=== PATIENT | male | born 1990 | race Caucasian/White ===

== ENCOUNTER 2022-07-17 21:15 | Emergency (ER) | payer OTHER ==
[2022-07-17] MEDS ORDERED: ZOFRAN ODT 4 MG PO ONE (21:22)
[2022-07-17] MEDS ORDERED: MORPHINE SULFATE 4 MG INJ IV ONE (21:22)
[2022-07-17] MEDS ORDERED: Adacel Vial IM ONE ×2 (21:22→21:54)
[2022-07-17] MEDS ORDERED: Sodium Chloride 0.9% 1000 ML 1,000 ML IV STA ×2 (21:22→22:15)
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
[2022-07-17 21:36] LABS: Hematocrit 50.9 % (42-50); Hemoglobin 17.7 g/dL (12.5-18.0); Mean Cell Volume 88.4 fL (78-100); Mean Corpuscular Hemoglobin 30.7 pg (26-32); Mean Corpuscular Hgb Concent. 34.8 g/dL (32-36); Mean Platelet Volume 9.9 fL (7.5-11.0); Platelet Count 473 x10^3/uL (150-450); Red Blood Count 5.76 x10^6/uL (4.1-5.6); Red Cell Distribution Width 12.1 % (11.5-14.0)
[2022-07-17 21:43] LABS: White Blood Count 34.1 x10^3/uL (4.0-10.5)
[2022-07-17 21:44] LABS: Bacteria FEW /HPF (NEGATIVE); Mucus SLIGHT /HPF (NEGATIVE)
[2022-07-17] MEDS ORDERED: ROCEPHIN 1 Gm-D5w 50 ml Bag** 1 G/50 ML IVPB IV STA (21:46)
[2022-07-17] MEDS ORDERED: Hydromorphone 1 mg/ml Injection IV ONE ×2 (21:47→23:35)
[2022-07-17 21:48] LABS: Appearance CLEAR (CLEAR)
[2022-07-17] MEDS ORDERED: Hydromorphone 1 mg/ml Injection ONE ×2 (21:48→23:40)
[2022-07-17 21:49] LABS: ALBUMIN 5.2 g/dL (3.5-5.0); ALKALINE PHOSPHATASE 94 U/L (38-126); AMYLASE 75 U/L (30-110); ANION GAP 22.2 MEQ/L (5-15); BLOOD UREA NITROGEN 16 mg/dL (9-20); CHLORIDE 100 mmol/L (98-107); Calcium 9.6 mg/dL (8.4-10.2); Carbon Dioxide 20 mmol/L (22-30); Creatinine 1 1.26 mg/dL (0.66-1.25); EST GLOMERULAR FILTRATION RATE > 60.0 ML/MIN; ETHYL ALCOHOL < 10 mg/dL (0-10); Glucose 180 mg/dL (74-106); LIPASE 296 U/L (23-300); Potassium 3.1 mmol/L (3.5-5.1); SGOT/AST 39 U/L (17-59); SODIUM 140 mmol/L (137-145); Total Protein 7.8 g/dL (6.3-8.2)
[2022-07-17 21:49] LABS: Bilirubin NEGATIVE (NEGATIVE); Dipstick done @ ? MAIN LAB; Glucose NEGATIVE (NEGATIVE); Ketones TRACE (NEGATIVE); Nitrite NEGATIVE (NEGATIVE); Ph 6.5 (5-6); Protein,Urine Dip NEGATIVE (Negative); RBC TRACE-INTACT Ery/ul (0-5); Specific Gravity 1.025 (1.005-1.025); Urobilinogen 0.2 mg/dL (0-1)
[2022-07-17 21:51] LABS: Urine Cultured Indicated? YES
[2022-07-17] MEDS ORDERED: ROCEPHIN 1 Gm-D5w 50 ml Bag** 1 G/50 ML IVPB IV ONE (21:53)
[2022-07-17 21:54] LABS: Amphetamine,Urine NEGATIVE (NEGATIVE); Barbiturate,Urine NEGATIVE (NEGATIVE); Benzodiazepine,Urine NEGATIVE (NEGATIVE); Cocaine,Urine NEGATIVE (NEGATIVE); Methadone,Urine NEGATIVE (NEGATIVE); Opiate,Urine NEGATIVE (NEGATIVE); PCP,Urine NEGATIVE (NEGATIVE); THC,Urine POSITIVE (NEGATIVE)
[2022-07-17 21:56] LABS: SGPT/ALT 32 U/L (0-50)
[2022-07-17 22:39] LABS: BAND 2 % (0.0-2.0); Lymphocytes 16 % (24-44); Monocyte 4 % (0.0-12.0); Nucleated Red Blood Cell 1 %; Platelet Estimate INCREASED (NORMAL); Total Cells Counted 100
[2022-07-17] MEDS ORDERED: Sodium Chloride 0.9% 1000 ML 1,000 ML ONE (22:42)
[2022-07-17] MEDS ORDERED: Norflex 60 MG/2 ML IV ONE (22:51)
[2022-07-17] MEDS ORDERED: Norflex 60 MG/2 ML ONE (22:52)
[2022-07-17] MEDS ORDERED: BACIGUENT 30 GM TP ONE (23:37)
[2022-07-17] MEDS ORDERED: BACIGUENT PACKET ONE (23:41)
[2022-07-18] MEDS ORDERED: Klor Con PO ONE ×2 (00:10→00:57)
[2022-07-18] MEDS ORDERED: MORPHINE SULFATE 4 MG INJ IV ONE (00:52)
[2022-07-18] MEDS ORDERED: MORPHINE SULFATE 4 MG INJ ONE (00:52)
[2022-07-18 01:05] VITALS: BP 140/78; PULSE 73; O2SAT 100
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
[2022-07-18] MEDS ORDERED: BACIGUENT 30 GM TP ONE (23:43)
== END 2022-07-18 01:18 | disposition short-term general hospital (02) ==
LOC: ED 21:15
DX: S82.102B Unspecified fracture of upper end of left tibia, initial encounter for open fracture type I or II (principal); S52.001B Unspecified fracture of upper end of right ulna, initial encounter for open fracture type I or II; S30.810A Abrasion of lower back and pelvis, initial encounter; S20.412A Abrasion of left back wall of thorax, initial encounter; S20.411A Abrasion of right back wall of thorax, initial encounter; V28.4XXA Motorcycle driver injured in noncollision transport accident in traffic accident, initial encounter; E87.6 Hypokalemia; M25.511 Pain in right shoulder; M25.531 Pain in right wrist; M79.651 Pain in right thigh; M25.561 Pain in right knee; M25.562 Pain in left knee; M25.571 Pain in right ankle and joints of right foot
CPT/HCPCS: 36000; 36415; 70450; 71250; 72125; 72128; 72131; 73030; 73080; 73552; 73560; 73610; 74176; 80053; 80307; 81015; 82150; 83690; 85025; 87086; 90471; 90715; 93005; 96360; 96361; 96365; 96374; 96375; 96376; 99285; 99291; J0696; J1170; J2270; J2360; Q0162; A9270-GY; G0480

== ENCOUNTER 2023-12-07 10:55 | Emergency (ER) | payer OTHER ==
[2023-12-07 11:15] VITALS: RESP 14; TEMP 98
[2023-12-07] MEDS ORDERED: TORAdol 30 mg Injection IM ONE (11:40)
[2023-12-07] MEDS ORDERED: DECADRON 10MG INJ. IM ONE (11:40)
[2023-12-07] MEDS ORDERED: DECADRON 10MG INJ. ONE (11:42)
[2023-12-07] MEDS ORDERED: TORAdol 30 mg Injection ONE (11:42)
--- NOTE | 2023-12-07 11:44 | ERPHSYRPT ---
- History of Present Illness Time Seen by Provider: 12/07/23 11:10 Source: patient Exam Limitations: no limitations Patient Subjective Stated Complaint: pt states that he began to have pain in his left shoulder Triage Nursing Assessment: pt ambulated into the er; pt is axo x4; c/o left shoulder pain; pt states 6/10 pain to left shoulder; swelling present to left posterior shoulder; limited ROM to left shoulder; no bruising present to left shoulder; strong left radial pulses; pt denies fall or injury to left shoulder; skin PDW; no respiratory distress present; vitals wnl Physician History: Patient is a 33-year-old male presents to our ED with left shoulder pain x 2 days. Patient had the same pain a couple years back. The pain resolved but has not reoccurred. No associated trauma. 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 Patient does a lot of overhead work activities. No fever. Patient has tenderness to the left rhomboid and left upper trapezius governing the left shoulder. No pain specifically at the left GH joint. No signs of trauma no bruising no swelling. RN reports following however this is not appreciated on my exam. Involved extremities neurovascular tact distally. Compartments are soft cap refill less than 2 seconds. Overlying soft tissue intact. No associated symptomology patient is otherwise healthy. He voices no other complaints or concerns at this time. Portions of this note were created with voice recognition technology. There may be grammatical, spelling, punctuation or sound alike errors Occurred: days ago (2 days ago) Method of Injury: unknown Quality: intermittent Severity of Pain-Max: moderate Severity of Pain-Current: mild Extremities Pain Location: shoulder: left Modifying Factors: Improves With: movement (Pain reproduced with palpation to the left rhomboids left upper trapezius musculature. Pain improved with rest. Active movement reproduces pain as well.) Associated Symptoms: none Allergies/Adverse Reactions: bee venom protein (honey bee) Allergy (Verified 12/07/23 11:07) Anaphylactic Reaction Home Medications: Sumatriptan Succinate [Imitrex] 25 mg PO HS 12/07/23 [History] Zolpidem Tartrate 10 mg [Ambien 10 MG] 10 mg PO HS PRN 12/07/23 [History] Hx Tetanus, Diphtheria Vaccination/Date Given: No (unsure) Hx Influenza Vaccination/Date Given: No Hx Pneumococcal Vaccination/Date Given: No Travel Risk - International Travel Have you traveled outside of the country in past 3 weeks: No - Coronavirus Screening Are you exhibiting any of the following symptoms?: Yes Symptoms: Headaches/Body Aches/Fatigue Close contact with a COVID-19 positive Pt in past 14-21 Days: No - Vaccine Status Have you recieved a Covid-19 vaccination: No - Review of Systems Constitutional: No Symptoms, No Fever, No Chills Eyes: No Symptoms Ears, Nose, & Throat: No Symptoms Respiratory: No Symptoms, No Cough, No Dyspnea Cardiac: No Symptoms, No Chest Pain, No Edema, No Syncope Abdominal/Gastrointestinal: No Symptoms, No Abdominal Pain, No Nausea, No Vomiting, No Diarrhea Genitourinary Symptoms: No Symptoms, No Dysuria Musculoskeletal: No Symptoms, No Back Pain, No Neck Pain Skin: No Symptoms, No Rash Neurological: No Symptoms, No Dizziness, No Focal Weakness, No Sensory Changes Psychological: No Symptoms Endocrine: No Symptoms Hematologic/Lymphatic: No Symptoms Immunological/Allergic: No Symptoms All Other Systems: Reviewed and Negative - Past Medical History Pertinent Past Medical History: Yes Neurological History: Migraines Cardiac History: No Pertinent History Respiratory History: No Pertinent History Endocrine Medical History: No Pertinent History Musculoskeletal History: Fractures Other Medical History: NO OTHER SIGNIFICANT PMHX - Past Surgical History Past Surgical History: No - Social History Smoking Status: Never smoker Exposure to second hand smoke: Yes Drug Use: none Patient Lives Alone: No - Nursing Vital Signs Nursing Vital Signs: Initial Vital Signs Pulse Rate 72 12/07/23 11:06 Blood Pressure 122/69 12/07/23 11:06 O2 Sat by Pulse Oximetry 95 12/07/23 11:06 Pain Scale Pain Intensity 4 - Physical Exam General Appearance: no apparent distress, alert Eyes, Ears, Nose, Throat Exam: moist mucous membranes Neck Exam: non-tender, supple Cardiovascular/Respiratory Exam: chest non-tender, normal breath sounds, regular rate/rhythm, no respiratory distress Abdominal Exam: non-tender, No guarding Back Exam: normal inspection, No vertebral tenderness Shoulder Exam: normal inspection, limited ROM (Active range of motion limited due to pain at the left upper trapezius and rhomboid musculature) Elbow/Forearm Exam: normal inspection, non-tender, no evidence of injury, normal ROM Wrist Exam: normal inspection Hand Exam: normal inspection Neuro/Tendon Exam: normal sensation, normal motor functions Mental Status Exam: alert, oriented x 3, cooperative Skin Exam: normal color, warm, dry SpO2 Interpretation: normal SpO2: 95 O2 Delivery: Room Air - Course Nursing assessment & vital signs reviewed: Yes Ordered Tests: Active Orders 24 hr Category Date Time Status SHOULDER Stat Exams 12/07/23 11:58 Completed Medication Summary Discontinued Medications Generic Name Dose Route Start Last Admin Trade Name North PRN Reason Stop Dose Admin Dexamethasone Sodium Phosphate 8 mg 12/07/23 11:40 12/07/23 11:47 Dexamethasone Sod Phosphate 10 Mg/Ml IM 12/07/23 11:41 8 mg STAT ONE Administration Dexamethasone Sodium Phosphate Confirm 12/07/23 11:42 Dexamethasone Sod Phosphate 10 Mg/Ml Administered 12/07/23 11:43 Dose 10 mg .ROUTE .STK-MED ONE Ketorolac Tromethamine 60 mg 12/07/23 11:40 12/07/23 11:46 Ketorolac Tromethamine 30 Mg/Ml Inj IM 12/07/23 11:41 60 mg STAT ONE Administration Ketorolac Tromethamine Confirm 12/07/23 11:42 Ketorolac Tromethamine 30 Mg/Ml Inj Administered 12/07/23 11:43 Dose 60 mg .ROUTE .STK-MED ONE - Progress Progress: improved Progress Note: 33-year-old male presents with atraumatic left shoulder pain. Physical exam reveals tenderness to the left upper trapezius and left rhomboid musculature. No bony tenderness on exam. Involved extremities neurovascular tact distally compartments are soft cap refill less than 2 seconds. Patient's work activity is upper extremity intensive with regard to movement. It is likely patient is experiencing overutilization injury/repetitive motion injury. Patient received Toradol and IM Decadron for pain control and inflammation. Patient also received the left upper extremity sling. No imaging studies indicated at this time. Patient referred to orthopedic clinic for further evaluation and treatment. A prescription for Toradol forwarded to patient's pharmacy. Patient voices no other complaints or concerns at this time. Portions of this note were created with voice recognition technology. There may be grammatical, spelling, punctuation or sound alike errors Complexity of data reviewed is moderate complicated No critical care time Complex of data reviewed and analyzed is none. Diagnosis made based on history and physical examination. No specialized testing ordered Risk of complication and or risk of morbidity/mortality of patient management is moderate. A prescription for Toradol forwarded to patient's pharmacy Vital stable. Time spent to discharge patient is approximately 15 minutes. Plan of care established for shared decision making. No social determinants of health present impede follow-up. Portions of this note were created with voice recognition technology. There may be grammatical, spelling, punctuation or sound alike errors 12/07/23 11:52 At discharge requested a x-ray of left shoulder. I did not order one initially because I thought 1 was not indicated. X-ray left shoulder negative no acute findings observed 12/07/23 12:21 Counseled pt/family regarding: diagnosis, need for follow-up - Departure Departure Disposition: Home Clinical Impression: Muscle strain of left shoulder Condition: Stable Critical Care Time: No Referrals: Provider,Unknown [Primary Care Provider] - Follow up/PCP as directed Additional Instructions: Discharge/Care Plan SOLITARIO PADILLA was seen on 12/07/23 in the Emergency Room. The patient was counseled regarding Diagnosis,Lab results, Imaging studies, need for follow up and when to return to the Emergency Room. Prescriptions given: Discharge Note I have spoken with the patient and/or caregivers. I have explained the patient's condition, diagnosis and treatment plan based on the information available to me at this time. I have answered the patient's and/or caregiver's questions and addressed any concerns. The patient and/or caregivers have as good understanding of the patient's diagnosis, condition and treatment plan as can be expected at this point. The vital signs have been stable. The patient's condition is stable and appropriate for discharge from the emergency department. The patient will pursue further outpatient evaluation with the primary care physician or other designated or consulting physician as outlined in the discharge instructions. The patient and/or caregivers are agreeable to this plan of care and follow-up instructions have been explained in detail. The patient and/or caregivers have received these instruction. The patient/and or caregivers are aware that any significant change in condition or worsening of symptoms should prompt an immediate return to this or the closest emergency department or call 911. Prescriptions: Ketorolac Trometh 10 mg Tab [TORAdol 10 MG TABLET] 10 mg PO TID 5 Days #15 tablet
--- NOTE | 2023-12-07 12:17 | XRAY ---
Indication: Pain. Comparison: None 3 view left shoulder demonstrates normal bones, articulation, and soft tissues.
[2023-12-07 12:26] VITALS: BP 117/83; PULSE 68; O2SAT 97
== END 2023-12-07 12:26 | disposition home or self-care (01) ==
LOC: ED 10:55
DX: S46.912A Strain of unspecified muscle, fascia and tendon at shoulder and upper arm level, left arm, initial encounter (principal); Z79.899 Other long term (current) drug therapy; Z28.310 Unvaccinated for COVID-19
CPT/HCPCS: 73030; 96372; 99283; J1100; J1885